=== PATIENT | female | born 1980 | race Caucasian/White ===

== ENCOUNTER 2016-11-06 18:36 | Emergency (ER) | payer MEDICAID, MEDICARE ==
[2016-11-06 18:52] VITALS: O2SAT 100
--- NOTE | 2016-11-06 18:59 | ED.PDOC ---
History of Present Illness - General Chief Complaint: Bite: Animal/Insect/Human Stated Complaint: insect sting Time Seen by Provider: 11/06/16 18:56 Source: patient, RN notes reviewed, Vital Signs reviewed, EMS Exam Limitations: no limitations - History of Present Illness Initial Comments: Patient comes to ER via EMS with c/o multiple wasp stings and feeling like her throat is closing up. EMS gave her Benadryl IV and reports even when she was c/ o SOB she was speaking in full sentences w/o difficulty. Patient is concerned about the pain from the wasp stings. Reports she got multiple stings to her head. Timing/Duration: 1/2 hour Severity: mild Improving Factors: medication Worsening Factors: nothing Associated Symptoms: shortness of breath Allergies/Adverse Reactions: Allergies NO KNOWN ALLERGY Allergy (Verified 11/06/16 18:51) Home Medications: Ambulatory Orders NK [NK] 11/06/16 Review of Systems - Review of Systems Constitutional: States: no symptoms reported EENTM: States: blurred vision - but barely opening eyes during exam, has 50mg of Benadryl IV onboard, throat swelling - feels like her throat is going to close up Respiratory: States: short of breath. Denies: cough, stridor, wheezing Cardiology: States: no symptoms reported Gastrointestinal/Abdominal: States: no symptoms reported Musculoskeletal: States: no symptoms reported Skin: States: see HPI Neurological: States: no symptoms reported All other Systems: No Change from Baseline Past Medical History (General) - Patient Medical History Hx Asthma: No Surgical History: appendectomy, other - Social History Hx Tobacco Use: Yes Hx Alcohol Use: No Hx Substance Use: No Hx Substance Use Treatment: No Hx Depression: No - Activities of Daily Living Hospice Agency (if applicable):: None - Female History Patient is a Female of Child Bearing Age (10 -59 yrs old): Yes Patient : No Family Medical History - Family History Mother Family History: Unknown Physical Exam - Physical Exam General Appearance: No apparent distress, Lethargic - but has Benadryl 50mg on board, Unkempt, Well Developed, Well Hydrated, Well Nourished Ears, Nose, Throat: normal ENT inspection, normal pharynx Neck: non-tender, full range of motion, supple, normal inspection Respiratory: chest non-tender, lungs clear, normal breath sounds, no respiratory distress, no accessory muscle use Cardiovascular/Chest: regular rate, rhythm, no gallop, no murmur Gastrointestinal/Abdominal: normal bowel sounds, non tender, soft Extremity: normal range of motion, non-tender, normal inspection Neurologic: alert, normal mood/affect, oriented x 3 Skin Exam: normal color, warm/dry, other - No visible wasp stings on scalp Progress - Progress Progress: 11/06/16 19:01 Will give Solu-Medrol 125mg IM 11/06/16 19:38 Patient is resting comfortably. Oxygen saturations have remained @ 100% on room air. He only current c/o is pain in her hip from the steroid shot. Will d/c home Departure - Departure Clinical Impression: Sting, wasp Qualifiers: Encounter type: initial encounter Injury intent: accidental or unintentional Qualified Code(s): T63.461A - Toxic effect of venom of wasps, accidental ( unintentional), initial encounter Time of Disposition: 19:39 Disposition: Discharge to Home or Self Care Condition: Good Departure Forms: ED Discharge - Pt. Copy, Patient Portal Self Enrollment Instructions: DI for Insect Bites and Stings Diet: resume usual diet Activity: increase activity as tolerated Home Medications: Ambulatory Orders NK [NK] 11/06/16 Additional Instructions: May take additional Benadryl and/or Zyrtec if needed.
[2016-11-06] MEDS: methylPREDNISolone SODIUM SUC 125 MG/2 ML VIAL IV ONE ×2 (19:01→19:20)
[2016-11-06] MEDS ORDERED: methylPREDNISolone SODIUM SUC 125 MG/2 ML VIAL IM ONE (19:20)
[2016-11-06 19:46] VITALS: BP 129/87; TEMP 98.3
== END 2016-11-06 19:46 | disposition home or self-care (01) ==
LOC: ER 18:36
DX: T63.441A Toxic effect of venom of bees, accidental (unintentional), initial encounter (principal); R06.02 Shortness of breath; Z87.891 Personal history of nicotine dependence; Y92.9 Unspecified place or not applicable

== ENCOUNTER → 2018-01-09 | Outpatient (CLI) | payer OTHER | LOC: LAB.O 08:54 | PROVIDERS: ATTEND Nurse Practitioner Psychiatric/Mental Health | DX: Z79.899 Other long term (current) drug therapy (principal) ==

== ENCOUNTER 2018-10-01 22:03 | Emergency (ER) | payer MEDICARE ==
--- NOTE | 2018-10-01 22:29 | ED.PDOC ---
History of Present Illness - General Chief Complaint: Bite: Animal/Insect/Human Stated Complaint: insect bite 1 week ago Time Seen by Provider: 10/01/18 22:21 Source: patient Exam Limitations: no limitations - History of Present Illness Initial Comments: Patient presents with insect bites and swelling to her LLQ and left lower back. She says they have been there for a week. She thinks it was a spider. She lives with her and daughter and they do not have similar symptoms. She also reports a general sense of feeling that "my body isn't right". No known fevers. No other complaints. Timing/Duration: 1 week Severity: mild Improving Factors: nothing Worsening Factors: nothing Associated Symptoms: denies symptoms Allergies/Adverse Reactions: Allergies NO KNOWN ALLERGY Allergy (Verified 10/01/18 22:14) Home Medications: Ambulatory Orders Anxiety Pill 10/01/18 Cephalexin Monohydrate [Keflex] 500 mg PO QID #40 cap 10/01/18 Depression Pill 10/01/18 Review of Systems - Review of Systems Constitutional: States: no symptoms reported EENTM: States: no symptoms reported Respiratory: States: no symptoms reported Cardiology: States: no symptoms reported Gastrointestinal/Abdominal: States: no symptoms reported Genitourinary: States: no symptoms reported Musculoskeletal: States: no symptoms reported Skin: States: see HPI Neurological: States: no symptoms reported Endocrine: States: no symptoms reported Hematologic/Lymphatic: States: no symptoms reported Past Medical History (General) - Patient Medical History Hx Seizures: No Hx Stroke: No Hx Dementia: No Hx Asthma: No Hx of COPD: No Hx Cardiac Disorders: No Hx Congestive Heart Failure: No Hx Pacemaker: No Hx Hypertension: No Hx Thyroid Disease: No Hx Diabetes: No Hx Gastroesophageal Reflux: No Hx Renal Disease: No Hx Cancer: No Hx Hepatitis C: No Surgical History: appendectomy - Vaccination History Hx Tetanus, Diphtheria Vaccination: No Hx Influenza Vaccination: No - Social History Hx Tobacco Use: Yes Hx Alcohol Use: No Hx Substance Use: No Hx Substance Use Treatment: No Hx Depression: No - Female History Patient : No Family Medical History - Family History Mother Family History: Unknown Physical Exam - Physical Exam General Appearance: Alert Respiratory: lungs clear, normal breath sounds Cardiovascular/Chest: normal peripheral pulses, regular rate, rhythm Gastrointestinal/Abdominal: normal bowel sounds, non tender, soft Skin Exam: other - raised blanching erythmatic macules on the LLQ and left lower back. There are several punctate lesions and the anterior group has a central dark eschar. NTTP. Progress - Progress Progress: 10/01/18 23:32 Laboratory Tests 10/01/18 10/01/18 10/01/18 22:32 22:32 22:32 WBC 5.4 RBC 4.30 Hgb 12.3 Hct 36.2 MCV 84.2 MCH 28.6 MCHC 33.9 RDW 13.7 Plt Count 224 MPV 9.2 Absolute Neuts (auto) 2.60 Absolute Lymphs (auto) 2.00 Absolute Monos (auto) 0.60 Absolute Eos (auto) 0.10 Absolute Basos (auto) 0.10 Neutrophils % 47.9 Lymphocytes % 37.1 Monocytes % 11.1 H Eosinophils % 2.7 Basophils % 1.2 Sodium 137 Potassium 3.8 Chloride 102 Carbon Dioxide 24 Anion Gap 14.8 Calcium 9.3 Serum HCG, Qual Negative No sign of systemic infection on labs. Likely an allergic reaction to multiple insect bites that has become superinfected with bacteria. The patient showed some emerging papules in other dermatomes as well. Given that, this is unlikely to be shingles. There also was not any blistering. The rashes were outlined with permanent black marker. Patient given Solumedrol 125 mg IM and Keflex 1000 mg po in the E.D. RX for Keflex 500 qid x 10 days given. Care instructions given. E.R. warnings given. Questions were elicited and answered. Patient voiced understanding and agreement with the plan. Departure - Departure Clinical Impression: Insect bites, Cellulitis Disposition: Discharge to Home or Self Care Condition: Good Departure Forms: ED Discharge - Pt. Copy, Patient Portal Self Enrollment Instructions: DI for Insect Bites and Stings, Cellulitis (Skin Infection), Adult (DC) Diet: resume usual diet Activity: increase activity as tolerated Referrals: Daly Ovalle NP [Primary Care Provider] - 1-2 Weeks Prescriptions: Cephalexin Monohydrate [Keflex] 500 mg PO QID #40 cap Home Medications: Ambulatory Orders Anxiety Pill 10/01/18 Cephalexin Monohydrate [Keflex] 500 mg PO QID #40 cap 10/01/18 Depression Pill 10/01/18 Additional Instructions: Use topical neosporin twice per day. Rub in topical hydrocortisone at the same time. Do this until the rash is no longer painful. Don't use the hydrocortisone without the neosporin. Monitor the rash size using the outlines. If the rash is not becoming smaller in 3-4 days, return to your regular doctor or the E.R. for re-evaluation. Return to the E.R. if the rashes increase in size or for a temperature greater than 100.3.
[2018-10-01 22:37] VITALS: O2SAT 99
[2018-10-01] MEDS ORDERED: methylPREDNISolone SODIUM SUC 125 MG/2 ML VIAL IM ONE (23:20)
[2018-10-01] MEDS ORDERED: CEPHALEXIN MONOHYDRATE 500 MG CAP PO ONE (23:20)
[2018-10-01 23:48] VITALS: BP 121/84; TEMP 98.1
== END 2018-10-01 23:48 | disposition home or self-care (01) ==
LOC: ER 22:03
DX: S30.861A Insect bite (nonvenomous) of abdominal wall, initial encounter (principal); S30.860A Insect bite (nonvenomous) of lower back and pelvis, initial encounter; L03.311 Cellulitis of abdominal wall; L03.312 Cellulitis of back [any part except buttock and flank]; W57.XXXA Bitten or stung by nonvenomous insect and other nonvenomous arthropods, initial encounter; Z87.891 Personal history of nicotine dependence; Z79.899 Other long term (current) drug therapy; Y92.9 Unspecified place or not applicable
CPT/HCPCS: 36415; 80053; 84703; 85025; J2930